=== PATIENT | female | born 1965 | race Caucasian/White ===

== ENCOUNTER 2016-10-05 08:27 | Day surgery (SDC) | payer BC ==
[~2016-10-05 08:27] MED LIST: LIDOCAINE W/ SODIUM BICARB 0.5 ML SYR ONE; Lactated Ringers 1,000 ML PRIMARY IV ONE; fentaNYL Inj 100 MCG/2 ML VIAL ONE
[2016-10-05 09:40] VITALS: RESP 12
--- NOTE | 2016-10-05 09:41 | GEN.OPNOTE ---
Colonoscopy Procedure Note Surgery Date: 10/05/16 Preoperative Diagnosis: Personal history of colon polyps. Family history of colon cancer. Postoperative Diagnosis: Same. Procedure: Complete colonoscopy. Surgeon: Amadeo Mera MD Anesthesia Provider: Dimitri Belcher CRNA Anesthesia Type: MAC Indications: Patient has a personal history of colon polyps and a family history of colon cancer. Her last colonoscopy was in 2010. There were no polyps at that colonoscopy. It's been 5 years and she is due for follow-up colonoscopy. Findings: Prep : [Excellent] Cecum : [Normal] Ascending : [Normal] Transverse : [Normal] Sigmoid : [Normal] Rectum : [Normal] Digital Rectal Exam : [Normal] A lubricated flexible colonoscope was inserted and passed to the blind end of the cecum. The appendiceal orifice and ileocecal valve were clearly seen. Air was aspirated as the scope was withdrawn. The entire colonoscopy was normal without polyp, tumor, neoplastic mass, infectious or inflammatory process. The scope was withdrawn completing the procedure. Patient tolerated all aspects of the procedure well without complication. She was taken to outpatient surgery in stable condition. Recommend follow-up colonoscopy in 5 years with her family history.
[2016-10-05 10:23] VITALS: TEMP 97.8
== END 2016-10-05 10:04 | disposition home or self-care (01) ==
LOC: SDSC 08:27
PROVIDERS: ATTEND Surgery
DX: Z86.010 Personal history of colon polyps (principal); Z80.0 Family history of malignant neoplasm of digestive organs
CPT/HCPCS: 45378; J2704; J3010; J7120

== ENCOUNTER → 2016-11-21 | Outpatient (CLI) | payer BC ==
[2016-11-21 09:37] LABS: FREE T4 (FREE THYROXINE) 0.93 ng/dL (0.93-1.71)
== END ==
LOC: LAB 08:03
PROVIDERS: ATTEND Obstetrics & Gynecology
DX: R94.6 Abnormal results of thyroid function studies (principal)
CPT/HCPCS: 84439; 84443

== ENCOUNTER → 2016-12-26 | Outpatient (CLI) | payer BC ==
--- NOTE | 2016-12-26 14:32 | STRESSTEST ---
[facility] [place] Interpretive Statements Patient exercised according to Ricardo protocol for 8.51 min. , baseline BP was 112/74, heart rate 69, baseline EKG showed minimal ST depression in the inferior leads and V6, Maximum heart rate was 139 which is 83% of the predicted, Maximum BP was 178/92, patient was injected with Cardiolite and exercised for more than a min post injection the test was terminated due to Fatigue and dizziness. EKG showed ventricular premature beats which were asymptomatic, there was some baseline interferrence but it looks like the ST depression got slightly worse but did not reach significant level and was upsloing and in the inferior leads, less than 1 mm I would say. However there was the limitaion of not reaching the target heart rate., Conclusion equivocal test. as did not reach target heart rate. Electronically Signed On 12-31-16 10:22:19 MDT by Nicolás Meehan MD [email or web address]
--- NOTE | 2016-12-26 21:28 | DI ---
1 DAY RICARDO STRESS & REST MYOCARDIAL PERFUSION SCANS, 12/26/2016 10:00 AM : Clinical History: Volunteer test subject for evaluation of 1 day myocardial perfusion imaging [facility] The patient has no cardiac symptoms or cardiac history. Previous Exam: None at this facility. Monitoring Physician: Dr. Roberta Rebolledo. Dose: Stress dose: 28 mCi on 12/26/2016. Rest dose: 12 mCi on 12/26/2016. Quantitative Analysis: Adomos program with low dose limited CT chest scan attenuation correctio n. Exam Quality: Excellent. Rejected Beats: Stress = 0%; Rest = 1%. HR: Stress = 64-72 b/m; Rest = 52-5 6 b/m, indicating sinus bradycardia. Left ventricular chamber sizes are normal at stress and rest. Transient ischemic dilatation ratio is 1.01 (normal Ricardo TID <= 1.22; normal Lexiscan TID <= 1.33). Stress LVEF: 74%; rest LVEF: 71%. There is anatomic apical thinning. Stress and rest myocardial perfusion, wall motion, and thickening are n ormal. Limited CT scans of the heart show no coronary artery calcifications. There are no lung nodule s or enlarged nodes. Readin. Normal stress and rest left ventricular chamber size. 2. Normal stress and rest LVEF values of 74% and 71%, respectively. 3. Normal stress and rest myocardial perfusion, wall motion, and thickening. There is anatomic thinn ing of the apex. 4. The low dose stress and rest CT scans of the chest through the region of the heart show no coron ken calcifications. There are no pulmonary nodules or masses. There is no mediastinal or hilar adenop athy.
== END ==
LOC: NM 10:31 → EDSTATUS 12:00
PROVIDERS: ATTEND Radiology Diagnostic Radiology
DX: Z00.00 Encounter for general adult medical examination without abnormal findings (principal)
CPT/HCPCS: 93017

== ENCOUNTER → 2017-01-16 | Outpatient (CLI) | payer BC ==
--- NOTE | 2017-01-16 11:47 | DI ---
US PELVIC COMPLETE (NON OB),01/16/2017 8:30 AM: Clinical History: Menorrhagia with irregular cycles. Previous Exam: None at this facility. Findings: Multiple transabdominal and endovaginal grayscale and color Doppler sonographic images are obtained t hrough the pelvis, and demonstrate a slightly heterogeneous, nodular uterus measuring 10.7 x 6.9 x 9. 8 cm with some fluid within the endometrial stripe. The endometrial stripe in its entirety measures 6 mm the There are multiple myometrial fibroids identified several of which were defined enough to measure. The ovaries were within normal limits bilaterally with normal Doppler flow. The first is a myometrial fibroid within the anterior fundus measuring 2.5 x 2.4 x 3.2 cm. There is a lso one within the posterior myometrium measuring 4.2 x 4.3 x 3.5 cm. There is a third within the posterior myometrial fundus measuring 2.9 x 2.4 x 3.4 cm as well. There is a cystic area within the cervix most consistent with a nabothian cyst. This measures 2.1 x 1 .2 x 1.6 cm. Impression: 1. Enlarged fibroid uterus. 2. Trace amount of fluid within the endometrial stripe most likely representing some blood. 3. Normal bilateral ovaries for age.
== END ==
LOC: US 08:15
PROVIDERS: ATTEND Obstetrics & Gynecology
DX: R94.6 Abnormal results of thyroid function studies (principal); N92.1 Excessive and frequent menstruation with irregular cycle; D25.9 Leiomyoma of uterus, unspecified
CPT/HCPCS: 36415; 76830; 76856; 84439

== ENCOUNTER → 2017-01-23 | Outpatient (CLI) | payer BC ==
[2017-01-23 11:27] LABS: URINE SPECIFIC GRAVITY - MAN 1.007
== END ==
LOC: LAB 10:28
PROVIDERS: ATTEND Obstetrics & Gynecology
DX: N92.0 Excessive and frequent menstruation with regular cycle (principal)
CPT/HCPCS: 84703

== ENCOUNTER 2017-01-24 06:58 | Day surgery (SDC) | payer BC ==
[2017-01-24] MEDS ORDERED: fentaNYL Inj 250 MCG/5 ML VIAL ONE (07:14)
[2017-01-24] MEDS ORDERED: LIDOCAINE MPF 2% - 5 ML (20 MG/1 ML) ONE (07:14)
[2017-01-24] MEDS ORDERED: MIDAZOLAM 5 MG/1 ML ONE (07:14)
[2017-01-24] MEDS: Lactated Ringers 1,000 ML PRIMARY IV ONE (07:22)
[2017-01-24] MEDS: LIDOCAINE W/ SODIUM BICARB 0.5 ML SYR ONE (07:22)
[2017-01-24] MEDS ORDERED: KETOROLAC 30 MG/1 ML VIAL ONE (08:11)
[2017-01-24] MEDS ORDERED: ONDANSETRON 4 MG/2 ML VIAL ONE (08:11)
[2017-01-24] MEDS ORDERED: Lactated Ringers 1,000 ML PRIMARY IV ONE (08:28)
[2017-01-24] MEDS ORDERED: GLYCOPYRROLATE 0.2 MG/1 ML VIAL ONE (08:36)
[2017-01-24 09:02] VITALS: RESP 12
--- NOTE | 2017-01-24 09:06 | OB.OP.NOTE ---
Operative Report Surgeon: Tomy Anesthesia Type: General (With LMA) Anesthesia Provider: Dimitri Belcher CRNA Surgery Date: 01/24/17 Preoperative Diagnosis: Menorrhagia status post endometrial ablation 4 years ago after amenorrhea for those four years Postoperative Diagnosis: Same. Atrophic endometrial lining Procedure: Hysteroscopy. Dilation of cervix and curettage of endometrial lining Estimated Blood Loss (mL): 3 Fluids: 1000 mL LR. Hysteroscopy fluids. 550 mL in and 550 mL out Complications: None apparent No evidence of uterine perforation Findings at Surgery: Atrophic endometrial lining Scarred endometrial lining [place] could not be visualized well secondary to endometrial scarring status post endometrial ablation 4 years ago with NovaSure No evidence of uterine perforation Minimal tissue with curettage A good crigh in all 4 quadrants of the endometrium with curettage Minimal bleeding in the endometrium status post curettage Indications for the Procedure: The patient is a 51-year-old white female 012 LMP 12/30/2016 and before that 12/10/2016 and before that 2012 after an endometrial ablation with NovaSure. The patient uses a bilateral tubal ligation that was completed in 2005 for contraception. In November 2016 the patient was started on a low dose of Synthroid secondary to a low free T4 and a normal but elevated TSH. The patient has lost 17 pounds since that time with exercising and she also feels better secondary to starting the Synthroid. However, the patient had a heavy menses on 12/10/2016 and then again on 12/30/2016 with no spotting in between her menses. The patient had an endometrial ablation in 2012 using NovaSure and has had no bleeding since that time. The patient did not have an ultrasound prior to the ablation. An ultrasound was ordered and the patient did have an ultrasound 01/16/2017 which showed her uterus to be nodular measuring 10.7 x 6.9 x 9.8 cm. The endometrial stripe was 6 mm. Multiple myometrial fibroids were identified. The ovaries both appeared normal bilaterally. There is an anterior fibroid measuring 2.5 x 2.4 x 3.2 cm. There were 2 posterior fibroids measuring 4.2 x 4.3 x 3.5 cm and 2.9 x 2.4 x 3.4 cm. The patient also had a 2.1 x 1.2 x 1.6 nabothian cyst at her cervix. The patient has menorrhagia status post endometrial ablation 4 years ago Description of Procedure: After the risks, benefits, alternatives and indications were discussed with the patient, consent form had been signed previously; the patient was brought to the operating room. The patient underwent general anesthesia with LMA and uncomplicated fashion. The [facility] The patient was prepped and draped sterilely. A timeout was completed and the patient and procedures were identified and approved The patient's urethra was catheterized with a straight catheter with gel and about 25 mL of urine was obtained. A weighted speculum was placed posteriorly and then the Aldana retractor was placed anteriorly and the cervix was identified and the anterior lip of the cervix was grasped with a single-tooth tenaculum. I then dilated the cervix using the Sanket dilators to a #30. This was done in a gentle fashion. Of note, the patient did receive Cytotec 200 g per vagina for 3 evenings prior to the surgery. The cervix dilated easily to a Sanket dilator of #30. The uterus was then sounded to 8 cm to the external os was of the cervix. I then placed the hysteroscope with fluid running into the cervix and then into the endometrial cavity. Endometrial atrophic lining was visualized. I could not visualize the ostia of the fallopian tubes at the cornu well secondary to the history of the patient having an endometrial ablation with NovaSure 4 years previously. Photographs were taken of the endometrium. I then used a serrated curet to the endometrial curettage. Several passes were completed and a good crigh was obtained almost immediately with the curette. No evidence of uterine perforation was noted with the serrated curette or previously with the uterine sound or with the Sanket dilators. Minimal tissue was obtained with curettage with several passes. I did collect whatever tissue was curetted on a Telfa pad and I used 3 different Telfa pads during the procedure and they were placed in the same container to be transported to pathology. I then performed another hysteroscopy to look at the endometrium and one photograph was taken post curettage. No submucosal fibroids or endometrial polyps were identified although the endometrium was scarred secondary to the history of endometrial ablation with NovaSure. Additionally, with the serrated curette, I was not able to palpate any submucosal fibroids. I curetted one more time and then placed the hysteroscope one more time in the endometrium. Minimal tissue was obtained with curettage and when I placed the hysteroscope into the endometrial cavity one more time, there was minimal bleeding and no evidence of uterine perforation and the uterine cavity filled well with the fluid. The procedure was completed. The Aldana retractor was placed back into the anterior vagina and the single- tooth tenaculum was removed from the anterior lip of the cervix. There was some bleeding from the tenaculum sites. I applied pressure but the tenaculum site on the patient's left side continue to bleed and I placed a 4-0 Vicryl [id number] suture around the tenaculum site and then tied this off and there was good hemostasis. The tenaculum site on the patient's right side was then hemostatic. I did not place a suture on the patient's right tenaculum site. There was good hemostasis from the patient's cervical os as well as from the patient's cervix in the area of the tenaculum site and the procedure was completed. Sponge stick was placed in the vagina to remove any old blood and then the weighted speculum was removed and good hemostasis was noted. The procedure was completed. The patient was awakened from her general anesthesia and LMA was removed. Patient was then brought to the PACU in stable condition. Sponge lap and needle counts were correct 2. Plan: The patient will recover in the PACU and then be discharged home. The specimen with minimal tissue obtained on curettage will be sent to our pathology baby registry sales consultant and I will await the tissue pathology results. I discussed this with the patient.
[2017-01-24] MEDS ORDERED: ONDANSETRON 4 MG/2 ML VIAL IVP PRN (09:07)
[2017-01-24] MEDS ORDERED: HYDROcodone-APAP 5 MG -325 MG TABLET PO PRN (09:07)
[2017-01-24] MEDS ORDERED: NORMAL SALINE 10 ML SYRINGE FLUSH IVP PRN (09:07)
[2017-01-24] MEDS ORDERED: Lactated Ringers 1,000 ML PRIMARY IV SCH (09:15)
[2017-01-24 10:29] VITALS: TEMP 97.6
== END 2017-01-24 10:23 | disposition home or self-care (01) ==
LOC: SDSC 06:58
PROVIDERS: ATTEND Obstetrics & Gynecology
DX: N92.0 Excessive and frequent menstruation with regular cycle (principal); D25.9 Leiomyoma of uterus, unspecified
CPT/HCPCS: 58558; J1885; J2704; J3010; J2001; J2250; J2405; J7120